=== PATIENT | female | born 1965 | race Caucasian/White ===

== ENCOUNTER → 2023-05-17 | Day surgery (SDC) | payer BC ==
[~2023-05-17] VITALS: Ht 177.8 cm; Wt 59.0 kg
[~2023-05-17] MED LIST: METHIMAZOLE10 MG PO; METOPROLOL SUCC25 M2 PO
[2023-05-17 10:33] VITALS: BP 127/55
[2023-05-17 11:43] VITALS: BP 84/37
[2023-05-17 11:58] VITALS: BP 91/50
[2023-05-17 12:13] VITALS: BP 101/54
== END ==
LOC: SDC 05-15 10:15
PROVIDERS: ATTEND Specialist
DX: H65.493 Other chronic nonsuppurative otitis media, bilateral (principal)